=== PATIENT | male | born 1950 | race Caucasian/White ===

== ENCOUNTER 2018-06-28 08:23 | Day surgery (SDC) | payer MEDICARE, OTHER ==
[~2018-06-28] VITALS: Ht 172.7 cm; Wt 90.7 kg
[~2018-06-28 08:23] MED LIST: ASPI325 PO; ATOR40TA; ATOR80 PO; CRUTCH3 USE; CYCL10 PO; Cleocin HCl300 MG PO; FISH1000; FURO20 PO; GEMF600 PO; IBUP800 PO; LISI10; Lovastatin20 MG PO; META800 PO; METF500 PO; METO50 PO; NAPR550 PO; Norco 10-325 T1 EACH PO; Norco 5-325 Ta1 EACH PO; OMACOR; OXYACE5T PO; VARE1 PO; Zestril40 MG
--- NOTE | 2018-06-28 09:03 | NUR ---
06/28/18 0903 Jannie Caldwell 3 IV ATTEMPTS BY [facility] FIRST IV ATTEMPT IN R HAND NO FLASHBACK SECOND IV ATTEMPT IN RAC SUCCESSFUL
[2018-06-28] MEDS ORDERED: AMLO5 (09:06)
[2018-06-28] MEDS ORDERED: VITAMIN B122500 MCG (09:07)
[2018-06-28] MEDS ORDERED: CHOL10002 (09:07)
[2018-06-28] MEDS ORDERED: Fish Oil 10001000 MG (09:08)
== END 2018-06-28 11:22 | disposition home or self-care (01) ==
LOC: ORSCSDS 08:23
PROVIDERS: Internal Medicine Gastroenterology
PROC: 0DBL8ZX Excision of Transverse Colon, Via Natural or Artificial Opening Endoscopic, Diagnostic (ICD-10-PCS; principal; 2018-06-28 10:00)
PROC: 0DBK8ZX Excision of Ascending Colon, Via Natural or Artificial Opening Endoscopic, Diagnostic (ICD-10-PCS; principal; 2018-06-28 10:00)
PROC: 0DBN8ZX Excision of Sigmoid Colon, Via Natural or Artificial Opening Endoscopic, Diagnostic (ICD-10-PCS; principal; 2018-06-28 10:00)
PROC: 0DBH8ZX Excision of Cecum, Via Natural or Artificial Opening Endoscopic, Diagnostic (ICD-10-PCS; principal; 2018-06-28 10:00)
PROC: 0DBP8ZX Excision of Rectum, Via Natural or Artificial Opening Endoscopic, Diagnostic (ICD-10-PCS; principal; 2018-06-28 10:00)
DX: Z12.11 Encounter for screening for malignant neoplasm of colon (principal); D12.0 Benign neoplasm of cecum; D12.2 Benign neoplasm of ascending colon; D12.3 Benign neoplasm of transverse colon; D12.5 Benign neoplasm of sigmoid colon; D12.8 Benign neoplasm of rectum; K57.30 Diverticulosis of large intestine without perforation or abscess without bleeding; K64.8 Other hemorrhoids; Z86.010 Personal history of colon polyps; E11.9 Type 2 diabetes mellitus without complications; G47.33 Obstructive sleep apnea (adult) (pediatric); I10 Essential (primary) hypertension; F17.210 Nicotine dependence, cigarettes, uncomplicated; Z79.82 Long term (current) use of aspirin; Z79.84 Long term (current) use of oral hypoglycemic drugs; Z79.899 Other long term (current) drug therapy
CPT/HCPCS: 82947; 88305; J7120